=== PATIENT | male | born 1940 | race Hispanic/Latino ===

== ENCOUNTER 2018-09-26 13:00 | Inpatient (IN) | payer MEDICAID, SELFPAY ==
[~2018-09-26 13:00] MED LIST: ISOVUE-370 76%-LOCM 1 ML ONE
--- NOTE | 2018-09-26 13:33 | RAD ---
EXAM: Single view of the chest HISTORY: Chest pain; history of lung cancer COMPARISON: 02/19/2017 FINDINGS: Single view of the chest shows a normal sized cardiomediastinal silhouette. There are area s of airspace opacity projecting over the right lung which were not seen on the prior radiograph. No pleural effusion is seen. The bones are unremarkable. IMPRESSION: Right pulmonary infiltrates.
[2018-09-26 14:03] LABS: Hemoglobin 13.2 g/dL (14.0-18.0); Mean Corpuscular HGB CONC 34.4 g/dL (32.0-36.0); Mean Corpuscular Hemoglobin 33.4 pg (27.0-31.0); Mean Corpuscular Volume 97.1 fL (78.0-98.0); Mean Platelet Volume 6.9 fL (7.4-10.4); Platelet Count 145 thou/uL (130-400); RBC Distribution Width 12.8 % (11.5-14.5); Red Blood Cell (RBC) Count 3.95 mill/uL (4.70-6.10); White Blood Cell (WBC) Count 4.8 thou/uL (4.8-10.8)
[2018-09-26 14:26] LABS: ALT (SGPT) 16 U/L (8-55); AST (SGOT) 18 U/L (5-34); Albumin 3.5 g/dL (3.4-4.8); Alkaline Phosphatase 101 U/L (40-150); Anion Gap 12 mmol/L (10-20); BUN (Urea Nitrogen) 13 mg/dL (8.4-25.7); Bilirubin, Total 0.7 mg/dL (0.2-1.2); CK (CPK) 89 U/L (30-200); Calc. Creatinine Clearance 0 mL/min (70-130); Calcium 9.2 mg/dL (7.8-10.44); Carbon Dioxide 25 mmol/L (23-31); Chloride 102 mmol/L (98-107); Estimated GFR-MDRD 77; Globulin 2.6 g/dL (2.4-3.5); Glucose 176 mg/dL (83-110); Potassium 3.4 mmol/L (3.5-5.1); Protein, Total 6.1 g/dL (5.8-8.1); Sodium 136 mmol/L (136-145)
--- NOTE | 2018-09-26 14:28 | ULT ---
LEFT LOWER EXTREMITY VENOUS DUPLEX ULTRASOUND INCLUDING COLOR AND SPECTRAL DOPPLER IMAGING: HISTORY: Lower leg pain. FINDINGS: There is occlusive thrombus within the mid to distal superficial femoral vein with incomplete obstruc ting thrombus in the left popliteal vein and profunda femoral and proximal superficial femoral vein. The common femoral, greater saphenous, and posterior tibial veins appear patent. IMPRESSION: Obstructing and nonobstructing extraluminal thrombus involving the superficial femoral vein, poplitea l vein, and profunda femoral vein. Findings given with Dr. Galan at 2:18 p.m. CODE CR POS: RRE
[2018-09-26 14:29] LABS: Band 13 % (5-11); Eosinophils 1 % (0-10); Lymphocytes 16 % (21-51); MDiff Complete? YES; Monocytes 15 % (0-10); Neutrophil 53 % (42-75); Platelet Morphology Comment Appears Adequate; Polychromasia SLIGHT = 2-3 cells (100X) (0-2/hpf); Reactive Lymphocytes 2 % (0-10)
[2018-09-26] MEDS ORDERED: cefTRIAXone\\ROCEPHIN 2 GM VIAL ONE (14:49)
[2018-09-26] MEDS ORDERED: Azithromycin 500 MG VIAL ONE (14:49)
--- NOTE | 2018-09-26 15:08 | CT ---
EXAM: CTA of the chest HISTORY: Shortness of breath COMPARISON: None TECHNIQUE: Multiple contiguous axial images were obtained a CTA of the chest with contrast per pulmon amanda embolism protocol. 3-D oblique MIP reformats and direct coronal reformats were performed. FINDINGS: HEART: Normal in size without focal cardiac abnormality. PULMONARY ARTERIES: Normal in caliber without filling defects to suggest pulmonary emboli. MEDIASTINUM: No hilar or mediastinal lymphadenopathy. LUNGS: There is a 2.7 cm cavitary mass in the right upper lobe with surrounding smaller nodules that are subcentimeter in size. Atelectasis versus consolidation is seen in the right middle lobe. PLEURAL SPACE: No pleural effusion or pneumothorax. CHEST WALL SOFT TISSUES: Unremarkable VISUALIZED OSSEOUS STRUCTURES: Unremarkable VISUALIZED SUBDIAPHRAGMATIC STRUCTURES: A small hypodensity imaging from the left kidney likely repre sents a cyst. IMPRESSION: 1. No evidence of pulmonary thromboembolism 2. Right upper lobe cavitary mass. This could represent a malignant or infectious process. Correlate with white blood cell count. If this is felt to be an infectious etiology, then a follow-up CT after treatment is recommended to rule out malignancy.
--- NOTE | 2018-09-26 15:29 | PDOC.FPRHP ---
- History of Present Illness Chief Complaint: chest pain History of Present Illness: This 78-y-o Indian-speaking gentleman from [place] with a PMHx of lung cancer related to extensive smoking history presents with chest pain. Started Sunday, feels like pressure and is associated with shortness of breath, pain in his jaws bilaterally, and a little bit of a nonproductive cough. No nausea, vomiting , diarrhea, fever, chills, or diaphoresis. Pain is substernal, without radiation. Worse with exertion. Pain comes and goes. Pain improves when the patient lays down to rest. Per his daughters he has stage IV lung cancer, and he finished chemo in July 2018. His oncologist and radiation-oncologist are located in [place]. He has a follow up w/ the oncologist on October 22. He is here because he is visiting his daughter. Four months ago is when the tightness in his left leg started. This was not associated with any event, as it was noticed gradually. However, the patient drives here from [place] to visit family and is sitting for 12 hours at a time. His left leg is more swollen than his right leg; however, he states his right leg is starting to look big like his left. Denies pain in lower extremity. ED Course: Patient arrived in ED with stable vital signs. Tests performed include: EKG, CXR , Venous doppler of left leg, CTA of the chest. Lactic acid was 2.7 so he was given 2 L of NS. Due to findings on CXR, he was given a dose of rocephin and azithromycin for possible pneumonia. Heparin gtt was started with finding of superficial and deep DVT in L femoral/popliteal veins. - Allergies/Adverse Reactions Allergies Allergy/AdvReac Type Severity Reaction Status Date / Time No Known Allergies Allergy Unverified 09/26/18 15:24 - Home Medications Medication Instructions Recorded Confirmed Type No Known 09/26/18 09/26/18 History Comments: None. - History PMHx: Stage IV lung cancer - Denies any other medical problems such as HTN, DM, Cardiac history. PSHx: no surgeries FHx: Mother is , had Diabetes and HTN. Social: denies alcohol use, history of smoking, 4 packs a day for 60 years. Denies drug use. He quit smoking October 2017. - Review of Systems General: reports: weight/appetite/sleep changes (6 kg down since the cancer diagnosis, decreased appetite as well since the diagnosis). denies: fever/ chills, night sweats Eyes: denies: vision changes Respiratory: reports: cough (intermittent, nonproductive), shortness of breath, exercise intolerance (dyspnea on exertion, improves w/ rest) Cardiovascular: reports: chest pain Gastrointestinal: denies: nausea, vomiting, diarrhea, constipation, abdominal pain Skin: denies: rashes, jaundice Musculoskeletal: reports: pain (R lower back), tenderness (R lower back) - Vital signs BP: [] HR: [] RR: [] Tmax: [] Pox: []% on [] Wt: [] - Physical Exam Constitutional: NAD, awake, alert and oriented, well developed HEENT: normocephalic and atraumatic, EOMI, no scleral icterus, grossly normal hearing, MMM Heart: RRR, normal S1/S2 Lungs: other (no dullness to percussion b/l, mild wheezing in b/l lower lung collins, patient has some upper airway stridor) Abdomen: soft, non-tender, bowel sounds present, other (mildly distended) Musculoskeletal: normal structure, normal tone Neurological: no focal deficit Skin: no rash/lesions, capillary refill <2 seconds Heme/Lymphatic: no LAD, other (mildly swollen L lower extremity as compared to right, nonerythematous, nontender LE to palpation. DP pulses 2+ bilaterally. No edema) Psychiatric: normal mood and affect, intact recent and remote memory FMR H&P: Results - Labs Result Diagrams: 09/27/18 04:58 09/27/18 04:58 Lab results: WBC 4.8 thou/uL (4.8-10.8) 09/26/18 13:50 Hgb 13.2 g/dL (14.0-18.0) L 09/26/18 13:50 Hct 38.3 % (42.0-52.0) L 09/26/18 13:50 MCV 97.1 fL (78.0-98.0) 09/26/18 13:50 Plt Count 145 thou/uL (130-400) 09/26/18 13:50 Band Neuts % (Manual) 13 % (5-11) H 09/26/18 13:50 Sodium 136 mmol/L (136-145) 09/26/18 13:50 Potassium 3.4 mmol/L (3.5-5.1) L 09/26/18 13:50 Chloride 102 mmol/L (98-107) 09/26/18 13:50 Carbon Dioxide 25 mmol/L (23-31) 09/26/18 13:50 BUN 13 mg/dL (8.4-25.7) 09/26/18 13:50 Creatinine 0.94 mg/dL (0.7-1.3) 09/26/18 13:50 Glucose 176 mg/dL (83-110) H 09/26/18 13:50 Lactic Acid 2.7 mmol/L (0.5-2.2) H 09/26/18 13:50 Calcium 9.2 mg/dL (7.8-10.44) 09/26/18 13:50 Total Bilirubin 0.7 mg/dL (0.2-1.2) 09/26/18 13:50 AST 18 U/L (5-34) 09/26/18 13:50 ALT 16 U/L (8-55) 09/26/18 13:50 Alkaline Phosphatase 101 U/L (40-150) 09/26/18 13:50 Creatine Kinase 89 U/L (30-200) 09/26/18 13:50 Serum Total Protein 6.1 g/dL (5.8-8.1) 09/26/18 13:50 Albumin 3.5 g/dL (3.4-4.8) 09/26/18 13:50 Troponin: <0.010 - EKG Interpretation EKG: Left axis deviation. QTc 457. NSR. - Radiology Interpretation CT scan - chest Status: image reviewed by me, report reviewed by me Additional comment: Negative for PE. 2.3 cm cavitary lesion in RUL representing infectious vs malignant process. Chest x-ray Status: image reviewed by me, report reviewed by me Additional comment: very small RUL opacity seen US - venous Status: image reviewed by me, report reviewed by me Additional comment: Left leg: Obstructive and nonobstructive extraluminal thrombus in superficial femoral, profunda femoral, and popliteal FMR H&P: A/P - Problem List (1) Left femoral vein DVT Current Visit: Yes Status: Acute Code(s): I82.412 - ACUTE EMBOLISM AND THROMBOSIS OF LEFT FEMORAL VEIN (2) Thromboembolism involving left popliteal vein Current Visit: Yes Status: Acute Code(s): I82.432 - ACUTE EMBOLISM AND THROMBOSIS OF LEFT POPLITEAL VEIN (3) Chest pain, rule out acute myocardial infarction Current Visit: Yes Status: Acute Code(s): R07.9 - CHEST PAIN, UNSPECIFIED (4) Tuberculosis contact Current Visit: Yes Status: Acute Code(s): Z20.1 - CONTACT WITH AND ( SUSPECTED) EXPOSURE TO TUBERCULOSIS (5) History of lung cancer in adulthood Current Visit: Yes Status: Chronic Code(s): Z85.118 - PERSONAL HISTORY OF MALIGNANT NEOPLASM OF BRONCHUS AND LUNG (6) History of tobacco abuse Current Visit: Yes Status: Acute Code(s): Z87.891 - PERSONAL HISTORY OF NICOTINE DEPENDENCE - Plan 78-y.o. male former smoker from [place]: 1. Provoked left femoral vein DVT, left popliteal vein thromboembolism * Patient is stable and still has palpable pulses and capillary refill <2 seconds on his left leg. * Due to his risk factors of lung cancer/hypercoagulability and sitting to drive long hours, this DVT is provoked. * DVT protocol w/ heparin gtt and PTT checks q6h and H&H q48h * Monitor for signs & symptoms of PE 2. Chest pain, r/o OK * Initial troponin negative. Trend troponins * EKG: left axis deviation, NSR. No ST-T wave changes. No previous EKG to compare. * CXR: small opacity RUL. No cardiomegaly. * Will place patient on telemetry overnight. 3. Tuberculosis contact * Patient is from [place] and has a cavitary lesion on CTA of chest, which could be his known malignancy or infectious. * Tuberculin PPD to be placed tonight * Negative pressure room. TB precautions in place. 4. History of lung cancer * Recent chemo treatment in July 2018. This cancer is a risk for clotting. * Will monitor patient's O2 sats. * DuoNebs q6h prn for SOB or wheezing. 5. History of tobacco abuse * Smoking history of 60 years at 3-4 ppd. Patient quit October 2017. Lorri Marks MD PGY-1 Disposition/LOS: Admit to telemetry, inpatient. FMR H&P: Upper Level - Plan Date/Time: 09/26/18 1521 78 yo male with pmhx of lung cancer (stage 4) presents with chest pain and left lower extremity swelling and tightness. Vitals: HR83, 99% RA, RR 20, BP: 108/76 PE: Left lower extremity with swelling of thigh, no erythema, mildly tenderness, no edema Lungs CTAB RRR Labs: 4.8>13.2/38.3<145 13% bands 2.7 Lactic acid 3.4 K US: thrombus found in the superficial, popliteal, and profunda vein of the left lower extremity CTA chest: negative for PE; right upper lobe cavitary lesion A/P: #DVT-recent travel from [place], and thus provoked, plus in the setting of lung cancer. Started on heparin protocol. Pt does have good kidney function and could consider lovenox tomorrow. I dont think the pt has insurance and will likely need warfarin upon discharge. #RUL cavitary lesion-recent travel to [place], will order sputum AFB culture and PPD to rule out TB, patient placed in isolation for now. Does not meet SIRS criteria. Consider ID consult. #Atypical chest pain-EKG showed left axis deviation, nonspecific t wave changes , trending troponin #Recent hx metastatic cancer-finished chemo in July IVianca MD, PGY-3 have evaluated this patient and agree with findings/ plan as outlined by recruiting internship resident. Pertinent changes/additions are listed here. Addendum - Attending - Attending Attestation Date/Time: 09/27/18 0820 I personally evaluated the patient and discussed the management with Dr. Carias at [facility] of admission yesterday. I agree with the History, Examination, Assessment and Plan documented above with any addition or exceptions noted below.
[2018-09-26 15:30] LABS: PTT 27.3 SEC (22.9-36.1); Prothrombin Time 13.1 SEC (12.0-14.7)
[2018-09-26] MEDS ORDERED: Heparin 25,000 units/D5W 500 ML IV SCH (15:30)
[2018-09-26] MEDS ORDERED: Heparin 10,000 UNITS/ 10 ML VIAL SLOW IVP SCH ×2 (15:30→18:04)
[2018-09-26 17:38] LABS: Troponin I Less than 0.010 ng/mL (< 0.028)
[2018-09-26 18:02] LABS: Lactic Acid 2.1 mmol/L (0.5-2.2)
[2018-09-26] MEDS ORDERED: Ondansetron ODT 4 MG TAB PO PRN (18:04)
[2018-09-26] MEDS ORDERED: Acetaminophen 325 MG TAB PO PRN (18:04)
[2018-09-26] MEDS ORDERED: Heparin 25,000 units/D5W 500 ML IVPB SCH (18:04)
[2018-09-26] MEDS ORDERED: Guaifenesin DM 100-10/5 ML UDCUP PO PRN (18:04)
[2018-09-26] MEDS ORDERED: Senokot S 8.6-50 MG TAB PO PRN (18:04)
[2018-09-26] MEDS ORDERED: Calcium Carbonate 500 MG ChewTAB PO PRN (18:04)
[2018-09-26 19:03] LABS: Hemoglobin 12.3 g/dL (14.0-18.0); Platelet Count 144 thou/uL (130-400)
[2018-09-26 19:21] LABS: PTT 159.3 SEC (22.9-36.1)
[2018-09-26] MEDS: Tuberculin PPD 0.1 ML VIAL I-DERMAL SCH (19:48)
[2018-09-26 20:08] LABS: Lactic Acid 2.4 mmol/L (0.5-2.2)
[2018-09-26 20:16] LABS: Troponin I Less than 0.010 ng/mL (< 0.028)
[2018-09-27 05:11] LABS: #Eosinphils 0.1 thou/uL (0.0-0.7); #Lymphocytes 0.8 thou/uL (1.20-3.40); #Monocytes 0.5 thou/uL (0.11-0.59); #Neutrophils 1.7 thou/uL (1.40-6.50); %Basophils 0.8 % (0.0-1.0); %Eosinophils 2.9 % (0.0-10.0); %Lymphocytes 26.7 % (21.0-51.0); %Monocytes 14.7 % (0.0-10.0); %Neutrophils 54.9 % (42.0-75.0); Hemoglobin 12.1 g/dL (14.0-18.0); Mean Corpuscular HGB CONC 34.4 g/dL (32.0-36.0); Mean Corpuscular Hemoglobin 33.7 pg (27.0-31.0); Mean Corpuscular Volume 97.9 fL (78.0-98.0); Mean Platelet Volume 6.8 fL (7.4-10.4); Platelet Count 137 thou/uL (130-400); RBC Distribution Width 12.8 % (11.5-14.5); Red Blood Cell (RBC) Count 3.61 mill/uL (4.70-6.10); White Blood Cell (WBC) Count 3.1 thou/uL (4.8-10.8)
[2018-09-27 05:28] LABS: ALT (SGPT) 12 U/L (8-55); AST (SGOT) 14 U/L (5-34); Alkaline Phosphatase 83 U/L (40-150); Anion Gap 11 mmol/L (10-20); BUN (Urea Nitrogen) 11 mg/dL (8.4-25.7); Bilirubin, Total 0.5 mg/dL (0.2-1.2); Calc. Creatinine Clearance 74 mL/min (70-130); Calcium 8.6 mg/dL (7.8-10.44); Carbon Dioxide 25 mmol/L (23-31); Chloride 108 mmol/L (98-107); Estimated GFR-MDRD Greater than 90; Globulin 2.3 g/dL (2.4-3.5); Glucose 117 mg/dL (83-110); Potassium 3.6 mmol/L (3.5-5.1); Protein, Total 5.3 g/dL (5.8-8.1); Sodium 140 mmol/L (136-145)
--- NOTE | 2018-09-27 05:45 | PDOC.FM ---
- Subjective Subjective: Patient is doing well. VSS. In sinus rhythm 60-70 bpm all night. Denies chest pain, trouble breathing. Denies history of having tuberculosis. No left leg pain today. - Objective MAR Reviewed: Yes Vital Signs & Weight: Vital Signs (12 hours) Temp Pulse Resp BP Pulse Ox 09/27/18 03:50 98.5 F 66 18 110/59 L 96 09/26/18 19:35 97.7 F 68 22 H 122/67 97 09/26/18 17:59 99.0 F 83 27 H 116/65 95 Weight Weight 71.123 kg Result Diagrams: 09/27/18 04:58 09/27/18 04:58 EKG Reviewed by me: Yes Radiology Reviewed by me: Yes Phys Exam - Physical Examination Constitutional: NAD HEENT: moist MMs Respiratory: clear to auscultation bilateral Cardiovascular: RRR, no significant murmur Gastrointestinal: soft, non-tender Musculoskeletal: no edema (no change from previous exam) Psychiatric: normal affect, A&O x 3 Dx/Plan (1) Left femoral vein DVT Code(s): I82.412 - ACUTE EMBOLISM AND THROMBOSIS OF LEFT FEMORAL VEIN Status: Acute (2) Thromboembolism involving left popliteal vein Code(s): I82.432 - ACUTE EMBOLISM AND THROMBOSIS OF LEFT POPLITEAL VEIN Status : Acute (3) Chest pain, rule out acute myocardial infarction Code(s): R07.9 - CHEST PAIN, UNSPECIFIED Status: Acute (4) Tuberculosis contact Code(s): Z20.1 - CONTACT WITH AND (SUSPECTED) EXPOSURE TO TUBERCULOSIS Status : Acute (5) History of lung cancer in adulthood Code(s): Z85.118 - PERSONAL HISTORY OF MALIGNANT NEOPLASM OF BRONCHUS AND LUNG Status: Chronic (6) History of tobacco abuse Code(s): Z87.891 - PERSONAL HISTORY OF NICOTINE DEPENDENCE Status: Acute - Plan Plan: 78-y.o. male former smoker from [place]: 1. Provoked left femoral vein DVT, left popliteal vein thromboembolism * Due to his risk factors of lung cancer/hypercoagulability and sitting to drive long hours, this DVT is provoked. * DVT protocol * Consider lovenox 1mg/kg q12h today. We may discharge on warfarin considering patient is from [place]/pending insurance. Patient has normal creatinine and no medical history of impaired renal function. * HASBLED = 1 * Monitor for signs & symptoms of PE 2. Chest pain, r/o AR * Troponin negative x3. * EKG: left axis deviation, NSR. No ST-T wave changes. No previous EKG to compare. * CXR: small opacity RUL. No cardiomegaly. * July d/c telemetry 3. Tuberculosis contact * Patient is from [place] and has a cavitary lesion on CTA of chest, which could be his known malignancy or infectious. * Tuberculin PPD pending * Acid fast sputum cultures pending * Negative pressure room. TB precautions in place. 4. History of lung cancer * Recent chemo treatment in July 2018. This cancer is a risk for clotting. * Will monitor patient's O2 sats. * DuoNebs q6h prn for SOB or wheezing. 5. History of tobacco abuse * Smoking history of 60 years at 3-4 ppd. Patient quit October 2017. Lorri Marks MD PGY-1 Addendum - Attending - Attending Attestation Date/Time: 09/27/18 0306 I personally evaluated the patient and discussed the management with Dr. Marks. I agree with the History, Examination, Assessment and Plan documented above with any addition or exceptions noted below. Family tells me patient had a clear XRay/CT scan previously - new lesion. No symptoms. Was scheduled to f/u with onc in October vs November. Will d/w pulm. Dispo pending.
[2018-09-27] MEDS ORDERED: Prevnar 13-Val Conj/PF 0.5 ML SYRINGE IM ONE (09:00)
--- NOTE | 2018-09-27 09:39 | ULT ---
ULTRASOUND WITH DOPPLER DUPLEX VENOUS LOWER EXTREMITY RIGHT: HISTORY: An 78-year-old male with right lower extremity pain. TECHNIQUE: Color flow Doppler, spectral waveform analysis of pulsed Doppler, and martin-scale imaging with giovany berhane and augmentation, were used to evaluate the right common femoral, femoral, popliteal, posterior tibial, and superficial femoral, veins; and the proximal portions of the profunda femoral and greater saphenous, veins. FINDINGS: There is normal compressibility, demonstration of blood flow by color Doppler and pulsed Doppler, and response to augmentation, in all interrogated veins. IMPRESSION: Negative. No deep vein thrombosis in the right lower extremity. jn [] POS: TPC
[2018-09-27 11:59] VITALS: BMI 27.0
[2018-09-27] MEDS ORDERED: Enoxaparin Sodium 80 MG/0.8 ML SYRINGE SC SCH (12:30)
[2018-09-27 12:47] LABS: HIV (1/2) Antibody/Antigen Non-Reactive (NonReactive); HIV 1/2 INDEX 0.05 S/CO (<1.00)
--- NOTE | 2018-09-27 14:24 | CON ---
DATE OF CONSULTATION: HISTORY OF PRESENT ILLNESS: Leonardo Smith is an 78-year-old gentleman from [place] , who is visiting family, where he presented with ongoing chest pain vague, midsternal without any associated fevers, chills, or sweats. He did not cough up any blood. He has a diagnosis of metastatic stage IV cancer , appears to be non-small cell, though they do not have a definitive answer to that. They are trying to get records from [place]. It was initially in the left lung. This morning, he said he is feeling better. Denies any fever, chills, or sputum production. The patient speaks little Spanish. History was obtained after talking to the daughter and [id number], who both speak Spanish. PAST MEDICAL HISTORY: No diabetes. No hypertension. Has stage IV lung cancer. PAST SURGICAL HISTORY: Lymph node biopsy was taken to make a diagnosis of his right neck. He smoked 4 packs a day for 60 years, quit smoking when a diagnosis made a year ago. SOCIAL AND FAMILY HISTORY: Unremarkable. REVIEW OF SYSTEMS: Negative. PHYSICAL EXAMINATION: GENERAL: He appears to be in no distress. VITAL SIGNS: His sats are 97% on room air, temperature 98, pulse 66, respirations 19, and blood pressure 115/62. CHEST: Decreased breath sounds. No wheezing. CARDIAC: Normal S1 and S2. No gallops. ABDOMEN: No masses. LABORATORY DATA: White count 3000, hemoglobin and hematocrit of 12 and 35, platelet count is normal. His lytes are normal. IMPRESSION: Bilateral lung nodules, right upper lung appears to be cavitary. Chest x-ray basically showed right lung infiltrate. Metastatic lung cancer, probably non-small cell. No evidence of TB to suggest either on the x-ray or the CT. Pulmonary caputo, the patient is in isolation. He needs sputum for verification to confirm that he does not have TB. From my standpoint, once this is obtained, he is ready to go home. He clearly has a nodule in the left lung, which was not reported on the CT report and a peripheral right upper lung cavitary lesion and bilateral lung nodules. If they need any additional workup for metastatic disease,needs a PET scan, my best suggestion is trying to get some information from [place]. Consultation note, 70 minutes, 50% direct patient care. Job ID: [id number] [facility]
[2018-09-27] MEDS: Enoxaparin Sodium 80 MG/0.8 ML SYRINGE SC SCH (20:35)
--- NOTE | 2018-09-28 05:54 | PDOC.FM ---
- Subjective Subjective: VSS. Afebrile. Patient is doing well this morning. No complaints. No pain. Daughter at bedside. Daughter reports patient pays for his healthcare in [place] out of pocket. Discussed anticoagulation options this AM and follow up. Also reports patient plans to return to [place] within the next 10-14 days as he has oncology follow up. - Objective MAR Reviewed: Yes Vital Signs & Weight: Vital Signs (12 hours) Temp Pulse Resp BP Pulse Ox 09/28/18 05:41 96 09/28/18 04:00 98.6 F 72 18 119/72 96 09/27/18 19:35 95 09/27/18 19:33 97.8 F 75 18 113/65 95 Weight Admit Weight 71.123 kg Weight 69.218 kg I&O: 09/26/18 09/27/18 09/28/18 06:59 06:59 06:59 Intake Total 240 1080 Output Total 500 Balance -260 1080 Result Diagrams: 09/28/18 07:29 09/27/18 04:58 Phys Exam - Physical Examination Constitutional: NAD HEENT: moist MMs Respiratory: no wheezing, clear to auscultation bilateral Cardiovascular: RRR, no significant murmur Gastrointestinal: soft, non-tender, no distention, positive bowel sounds Musculoskeletal: no edema (left leg: no apparent swelling, erythema, or tenderness to palpation), pulses present Psychiatric: normal affect, A&O x 3 Dx/Plan (1) Left femoral vein DVT Code(s): I82.412 - ACUTE EMBOLISM AND THROMBOSIS OF LEFT FEMORAL VEIN Status: Acute (2) Thromboembolism involving left popliteal vein Code(s): I82.432 - ACUTE EMBOLISM AND THROMBOSIS OF LEFT POPLITEAL VEIN Status : Acute (3) Chest pain, rule out acute myocardial infarction Code(s): R07.9 - CHEST PAIN, UNSPECIFIED Status: Acute (4) Tuberculosis contact Code(s): Z20.1 - CONTACT WITH AND (SUSPECTED) EXPOSURE TO TUBERCULOSIS Status : Acute (5) History of lung cancer in adulthood Code(s): Z85.118 - PERSONAL HISTORY OF MALIGNANT NEOPLASM OF BRONCHUS AND LUNG Status: Chronic (6) History of tobacco abuse Code(s): Z87.891 - PERSONAL HISTORY OF NICOTINE DEPENDENCE Status: Acute - Plan Plan: 78-y.o. male former smoker from [place]: 1. Provoked left femoral vein DVT, left popliteal vein thromboembolism - Begin Warfarin 5 mg this AM. Will check INR daily starting tomorrow. - Continue Lovenox 1mg/kg q12h until warfarin becomes therapeutic. Normal creatinine and no medical history of impaired renal function. - Case mgmt needed to assess aid w/ prescriptions, would like to d/c on warfarin, need to coordinate follow up INR lab checks. - HASBLED = 1 - Monitor for signs & symptoms of PE 2. Chest pain, r/o VT - Troponin negative x3. - EKG: left axis deviation, NSR. No ST-T wave changes. No previous EKG to compare. - CXR: small opacity RUL. No cardiomegaly. 3. Tuberculosis contact - Patient is from [place] and has a cavitary lesion on CTA of chest, which could be his known malignancy or infectious. - Tuberculin PPD positive; however, patient has no symptoms/signs of TB. - Acid fast sputum smear: no organisms seen. - Concentrated smear and culture pending. - Continue TB precautions until final smear/culture. - Consulted pulmonology. Appreciate recs. Favors malignancy > infectious process in lung. 4. History of lung cancer - Recent chemo treatment in July 2018. - Will monitor patient's O2 sats. - DuoNebs q6h prn for SOB or wheezing. - Patient & [id number] would like oncology opinion on returning lung lesions. - Oncology consult this AM. 5. History of tobacco abuse - Smoking history of 60 years at 3-4 ppd. Patient quit October 2017. Lorri Marks MD PGY-1 Addendum - Attending - Attending Attestation Date/Time: 09/28/18 5764 I personally evaluated the patient and discussed the management with Dr. Carias. I agree with the History, Examination, Assessment and Plan documented above with any addition or exceptions noted below. The patient was resting comfortably with family at bedside. He has a LLE DVT. He is on lovenox. Will begin coumadin bridge. Check INR's. Pt's sputum afb negative. Family requests onc consultation. Will need to become therapeutic on coumadin. Pt unable to afford outpt lovenox.
[2018-09-28] MEDS: Enoxaparin Sodium 80 MG/0.8 ML SYRINGE SC SCH ×2 (08:04→21:25)
[2018-09-28 08:25] LABS: Hemoglobin 12.4 g/dL (14.0-18.0); Mean Corpuscular HGB CONC 34.4 g/dL (32.0-36.0); Mean Corpuscular Hemoglobin 33.8 pg (27.0-31.0); Mean Corpuscular Volume 98.1 fL (78.0-98.0); RBC Distribution Width 12.7 % (11.5-14.5); Red Blood Cell (RBC) Count 3.66 mill/uL (4.70-6.10)
[2018-09-28] MEDS ORDERED: Warfarin Sodium 5 MG TAB PO SCH (08:40)
[2018-09-28 11:00] LABS: Prothrombin Time 13.1 SEC (12.0-14.7)
[2018-09-28 11:57] LABS: Eosinophils 2 % (0-10); Lymphocytes 28 % (21-51); MDiff Complete? YES; Mean Platelet Volume 7.2 fL (7.4-10.4); Monocytes 12 % (0-10); Neutrophil 52 % (42-75); Platelet Count 163 thou/uL (130-400); Platelet Morphology Comment Appears Adequate; Reactive Lymphocytes 6 % (0-10); White Blood Cell (WBC) Count 3.4 thou/uL (4.8-10.8)
--- NOTE | 2018-09-28 12:17 | PRG ---
DATE OF SERVICE: 09/28/2018 SUBJECTIVE: His PPD is positive. His sputum initially is negative. OBJECTIVE: VITAL SIGNS: Saturations are 98% on room air, temperature _98.4_, blood pressure 120/70. He denies any pain or discomfort. CHEST: No wheezing, crackles. CARDIAC: Normal S1, S2. No gallops. 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 Positive PPD. Initially his acid-fast was negative. I doubt this is TB His another sputum acid-fast is negative. He can be discharged home. Job ID: [id number] [facility]
[2018-09-28 18:34] LABS: Hemoglobin 13.2 g/dL (14.0-18.0); Platelet Count 166 thou/uL (130-400)
[2018-09-28] MEDS: Tuberculin PPD 0.1 ML VIAL I-DERMAL SCH (21:26)
[2018-09-28] MEDS: READ PPD TEST SITE PO SCH (21:28)
[2018-09-29 05:13] LABS: Prothrombin Time 13.1 SEC (12.0-14.7)
--- NOTE | 2018-09-29 05:52 | PDOC.FM ---
- Subjective Subjective: VSS. Afebrile. Patient, via [id number], who speaks Hebrew reports no complaints and no pain. Am Patient appears very stoic. Family brought records of CT scans prior to chemo from [place]. They also gave cell phone number of oncologist Dr. Eldon Toussaint, who speaks only Danish and who we could possibly contact through [employer]. Per [id number], the patient's leg w/ DVT looks markedly improved! They agree w/ the plan to continue warfarin on d/c. - Objective MAR Reviewed: Yes Vital Signs & Weight: Vital Signs (12 hours) Temp Pulse Resp BP Pulse Ox 09/29/18 04:00 97.7 F 84 18 102/63 94 L 09/28/18 20:20 98 F 80 20 116/64 98 Weight Admit Weight 71.123 kg Weight 68.629 kg I&O: 09/27/18 09/28/18 09/29/18 06:59 06:59 06:59 Intake Total 240 1320 960 Output Total 500 500 Balance -260 820 960 Result Diagrams: 09/28/18 18:16 09/27/18 04:58 Phys Exam - Physical Examination Constitutional: NAD Respiratory: no wheezing, clear to auscultation bilateral Cardiovascular: RRR, no significant murmur Gastrointestinal: soft Musculoskeletal: no edema, pulses present Dx/Plan (1) Left femoral vein DVT Code(s): I82.412 - ACUTE EMBOLISM AND THROMBOSIS OF LEFT FEMORAL VEIN Status: Acute (2) Thromboembolism involving left popliteal vein Code(s): I82.432 - ACUTE EMBOLISM AND THROMBOSIS OF LEFT POPLITEAL VEIN Status : Acute (3) Chest pain, rule out acute myocardial infarction Code(s): R07.9 - CHEST PAIN, UNSPECIFIED Status: Acute (4) Tuberculosis contact Code(s): Z20.1 - CONTACT WITH AND (SUSPECTED) EXPOSURE TO TUBERCULOSIS Status : Acute (5) History of lung cancer in adulthood Code(s): Z85.118 - PERSONAL HISTORY OF MALIGNANT NEOPLASM OF BRONCHUS AND LUNG Status: Chronic (6) History of tobacco abuse Code(s): Z87.891 - PERSONAL HISTORY OF NICOTINE DEPENDENCE Status: Acute - Plan Plan: 78-y.o. male former smoker from [place]: 1. Provoked left femoral vein DVT, left popliteal vein thromboembolism - Continue Warfarin 5 mg this AM - Daily INR - Continue Lovenox 1mg/kg q12h until warfarin becomes therapeutic. Normal Creatinine. - Case mgmt needed to assess aid w/ prescriptions, would like to d/c on warfarin, need to coordinate follow up INR lab checks. - HASBLED = 1 - Monitor for signs & symptoms of PE 2. Chest pain, r/o [place] - Troponin negative x3. - EKG: left axis deviation, NSR. No ST-T wave changes. No previous EKG to compare. - CXR: small opacity RUL. No cardiomegaly. 3. Tuberculosis contact - Patient is from [place] and has a cavitary lesion on CTA of chest, which could be his known malignancy or infectious. - Tuberculin PPD positive; however, patient has no symptoms/signs of TB. - Acid fast sputum smear: no organisms seen. x2 - Concentrated smears and cultures pending. - Continue TB precautions until final smear/culture. - Consulted pulmonology. Appreciate recs. Favors malignancy > infectious process in lung. - With regards to TB, patient could be discharged. However, his DVT treatment and warfarin titration must continue here for now. Patient is uninsured and outpatient LVX is quite expensive. 4. History of lung cancer - Recent chemo treatment in July 2018. - Will monitor patient's O2 sats. - DuoNebs q6h prn for SOB or wheezing. - Called Dr. Serna of oncology. Need oncology records from [place] before he can proceed with any mgmt. Family brought his CT reports today. They will need to be translated. Family could potentially follow up w/ Dr. Serna outpatient; however, he is uninsured and might be going back to [place] soon to see his regular oncologist. 5. History of tobacco abuse - Smoking history of 60 years at 3-4 ppd. Patient quit October 2017. Lorri Marks MD PGY-1 Addendum - Attending - Attending Attestation Date/Time: 09/29/18 5712 I personally evaluated the patient and discussed the management with Dr. Marks. I agree with the History, Examination, Assessment and Plan documented above with any addition or exceptions noted below. The patient is doing well this morning. Currently bridging to coumadin. Check INR.
[2018-09-29] MEDS: Enoxaparin Sodium 80 MG/0.8 ML SYRINGE SC SCH ×2 (09:22→20:43)
[2018-09-29] MEDS: Warfarin Sodium 5 MG TAB PO SCH (09:22)
--- NOTE | 2018-09-29 10:43 | PRG ---
DATE OF SERVICE: 09/29/2018 OBJECTIVE: VITAL SIGNS: Sats 95% on room air, temperature 98, pulse 77, blood pressure . CHEST: Decreased breath sounds. No wheezing. CARDIAC: Normal S1, S2. No gallops. IMPRESSION: Bilateral pulmonary nodules, cavitary metastatic squamous cell carcinoma, positive PPD. PLAN: Await for another sputum result. If it is negative, he can be discharged home. Follow up with his oncologist. Job ID: [id number]
[2018-09-29] MEDS: Tuberculin PPD 0.1 ML VIAL I-DERMAL SCH (21:00)
[2018-09-30] MEDS: READ PPD TEST SITE PO SCH (01:23)
[2018-09-30 02:52] LABS: Hemoglobin 12.8 g/dL (14.0-18.0); Platelet Count 166 thou/uL (130-400)
--- NOTE | 2018-09-30 06:12 | PDOC.FM ---
- Subjective Subjective: Pt doing well this morning without concerns or complaints. Family at bedside. Slept well without acute events overnight. Pt is eager to be discharged. Pt's [place] and want to follow up with us as PCP and find an Oncologist here if possible. - Objective MAR Reviewed: Yes Vital Signs & Weight: Vital Signs (12 hours) Temp Pulse Resp BP Pulse Ox 09/30/18 04:20 98.6 F 68 18 103/66 94 L 09/30/18 00:00 97.6 F 72 16 99/68 94 L 09/29/18 20:00 98.1 F 78 16 104/63 94 L Weight Admit Weight 71.123 kg Weight 66.814 kg I&O: 09/28/18 09/29/18 09/30/18 06:59 06:59 06:59 Intake Total 1320 1560 1320 Output Total 500 350 Balance 820 1560 970 Result Diagrams: 09/30/18 02:45 09/27/18 04:58 Phys Exam - Physical Examination Constitutional: NAD Respiratory: no wheezing, no rales, no rhonchi, clear to auscultation bilateral Cardiovascular: RRR, no significant murmur, no rub Gastrointestinal: soft, non-tender, no distention, positive bowel sounds Dx/Plan (1) Left femoral vein DVT Code(s): I82.412 - ACUTE EMBOLISM AND THROMBOSIS OF LEFT FEMORAL VEIN Status: Acute (2) Thromboembolism involving left popliteal vein Code(s): I82.432 - ACUTE EMBOLISM AND THROMBOSIS OF LEFT POPLITEAL VEIN Status : Acute (3) History of lung cancer in adulthood Code(s): Z85.118 - PERSONAL HISTORY OF MALIGNANT NEOPLASM OF BRONCHUS AND LUNG Status: Chronic (4) History of tobacco abuse Code(s): Z87.891 - PERSONAL HISTORY OF NICOTINE DEPENDENCE Status: Acute - Plan Plan: 78-y.o. male former smoker from [place] with Stage IV lung cancer treated in [place] who presents with provoked left DVT 1. Provoked left femoral vein DVT, left popliteal vein thromboembolism - Continue Warfarin 5 mg, INR 1.0, will continue to monitor with INR this AM 1.2. Will increase warfarin to 7.5mg daily and recheck INR in AM. - Continue Lovenox 1mg/kg q12h until warfarin becomes therapeutic. Normal Creatinine. - Case mgmt consulted for assistance with med funding and follow up, appreciate recs - HASBLED = 1 - Monitor for signs & symptoms of PE 2. Chest pain, r/o [place] - pain resolved - Troponin negative x3. EKG with left axis deviation and no ST/T wave changes. No previous EKG. - CXR: small opacity RUL. No cardiomegaly. 3. Tuberculosis contact - From [place] and has a cavitary lesion on CTA of chest, which could be his known malignancy or infectious. - Tuberculin PPD positive; however, patient has no symptoms/signs of TB. - Acid fast sputum smear: no organisms seen. x2 - Concentrated smears and cultures pending. Continue TB precautions until final smear/culture. - Consulted pulmonology. Appreciate recs. Favors malignancy > infectious process in lung. 4. History of lung cancer - Recent chemo treatment in July 2018. - Dr. Serna of oncology consulted. Onc records from [place] obtained from family but need translation. Pt is inunsuraned but wishes to follow up with Onc here in [facility] if possible. 5. History of tobacco abuse - Smoking history of 60 years at 3-4 ppd. Patient quit October 2017. Diet: heart healthy VTE: Therapeutic Lovenox --> warfarin Code: Full Dispo: Pending therapeutic INR. Patient is uninsured and thus will need assistance with funding as outpatient. Will also need arrangements for Onc and PCP followup if desired.
[2018-09-30 09:04] LABS: INR-International Normal Ratio 1.2; Prothrombin Time 14.9 SEC (12.0-14.7)
[2018-09-30] MEDS: Warfarin Sodium 5 MG TAB PO SCH (09:11)
[2018-09-30] MEDS: Enoxaparin Sodium 80 MG/0.8 ML SYRINGE SC SCH ×2 (09:11→20:06)
--- NOTE | 2018-09-30 09:46 | PRG ---
DATE OF SERVICE: 09/30/2018 SUBJECTIVE: Leonardo Smith remains asymptomatic. OBJECTIVE: VITAL SIGNS: Temperature 98, pulse 71, sats 94% on room air, respirations 17, blood pressure 99/55. CHEST: No wheezing or crackles. CARDIAC: Normal S1 and S2. ABDOMEN: No masses. IMPRESSION: 1. Abnormal chest x-ray, bilateral pulmonary lung nodules, metastatic squamous cell carcinoma. 2. Positive PPD. Acid-Fast smear, negative on smears. PLAN: He can be discharged to home. Follow up with his primary care physician. Job ID: [id number]
[2018-09-30] MEDS ORDERED: Warfarin Sodium 2.5 MG TAB PO SCH (11:50)
--- NOTE | 2018-09-30 12:08 | PRG ---
DATE OF SERVICE: 09/30/2018 Mr. Smith is resting quietly in bed, in no distress. He was seen in consultation by the Pulmonary Service, who feels he is ready for discharge. We are still in the process of anticoagulating him for his DVT. His AFB smears are so far negative despite the positive skin test. We will discharge him once the pro-time is above 2 to 2.5. Job ID: [id number]
[2018-09-30] MEDS ORDERED: Warfarin Sodium 7.5 MG TAB PO SCH (17:00)
[2018-09-30 18:50] LABS: Hemoglobin 12.9 g/dL (14.0-18.0); Platelet Count 177 thou/uL (130-400)
--- NOTE | 2018-10-01 05:14 | PDOC.FM ---
- Subjective Subjective: Pt is doing well this morning without concerns or complaints. No acute events overnight. No fevers/Chills, CP, SOB, n/v/d/c. Family states they are going to continue to obtain outside records for f/u with onc as outpatient. - Objective MAR Reviewed: Yes Vital Signs & Weight: Vital Signs (12 hours) Temp Pulse Resp BP Pulse Ox 10/01/18 03:40 97.4 F L 78 18 103/69 94 L 09/30/18 20:00 97.7 F 70 16 119/72 97 Weight Admit Weight 71.123 kg Weight 67.676 kg I&O: 09/29/18 09/30/18 10/01/18 06:59 06:59 06:59 Intake Total 1560 1320 1380 Output Total 350 450 Balance 1560 970 930 Result Diagrams: 09/30/18 18:31 09/27/18 04:58 EKG Reviewed by me: Yes (Tele: NSR, no acute events) Phys Exam - Physical Examination Constitutional: NAD HEENT: moist MMs Neck: supple Respiratory: no wheezing, no rales, no rhonchi, clear to auscultation bilateral Cardiovascular: RRR, no significant murmur, no rub Gastrointestinal: soft, non-tender, no distention, positive bowel sounds Musculoskeletal: no edema Dx/Plan (1) Left femoral vein DVT Code(s): I82.412 - ACUTE EMBOLISM AND THROMBOSIS OF LEFT FEMORAL VEIN Status: Acute (2) Thromboembolism involving left popliteal vein Code(s): I82.432 - ACUTE EMBOLISM AND THROMBOSIS OF LEFT POPLITEAL VEIN Status : Acute (3) History of lung cancer in adulthood Code(s): Z85.118 - PERSONAL HISTORY OF MALIGNANT NEOPLASM OF BRONCHUS AND LUNG Status: Chronic (4) History of tobacco abuse Code(s): Z87.891 - PERSONAL HISTORY OF NICOTINE DEPENDENCE Status: Acute - Plan Plan: 78-y.o. male former smoker from [place] with Stage IV lung cancer treated in [place] who presents with provoked left DVT 1. Provoked left femoral vein DVT, left popliteal vein thromboembolism - Increased Warfarin to 7.5 mg yesterday , Last INR 1.2, will recheck this AM and adjust as needed. - Continue Lovenox 1mg/kg q12h until warfarin becomes therapeutic. Normal Creatinine. - HASBLED = 1. Monitor for signs & symptoms of PE 2. Chest pain, r/o [place] - pain resolved - Troponin negative x3. EKG with left axis deviation and no ST/T wave changes. No previous EKG. - CXR: small opacity RUL. No cardiomegaly. 3. Tuberculosis contact - From [place] and has a cavitary lesion on CTA of chest, which could be his known malignancy or infectious. - Tuberculin PPD positive; however, patient has no symptoms/signs of TB. Acid fast sputum smear negative x3. Will d/c TB precautions and continue to follow Cx - Consulted pulmonology. Appreciate recs. Favors malignancy > infectious process in lung. 4. History of lung cancer - Recent chemo treatment in July 2018. - Dr. Serna of oncology consulted. Onc records from [place] obtained from family but need translation. Pt is unsuraned but wishes to follow up with Onc here in [facility] if possible. Discussed with Dr. Mims and family. Pt will need to obtain outside images and translation of past records. Will f/u with Onc as outpatient. 5. History of tobacco abuse - Smoking history of 60 years at 3-4 ppd. Patient quit October 2017. Diet: heart healthy VTE: Therapeutic Lovenox --> warfarin Code: Full Dispo: Pending therapeutic INR. Will f/u with Onc as outpatient.
[2018-10-01] MEDS ORDERED: Warfarin Sodium 5 MG TAB PO SCH (09:00)
[2018-10-01] MEDS: Enoxaparin Sodium 80 MG/0.8 ML SYRINGE SC SCH ×2 (09:02→20:13)
[2018-10-01 10:12] LABS: INR-International Normal Ratio 1.6; Prothrombin Time 19.4 SEC (12.0-14.7)
--- NOTE | 2018-10-01 12:03 | PRG ---
DATE OF SERVICE: 10/01/2018 Mr. Smith is sitting quietly in bed, in no distress. He and his family have requested an Oncology consult as an outpatient. They still have not made a decision regarding continuing his treatment here or in [place], although now they are leaning toward getting his treatment in [place]. In the event, his AFB stains have all been negative. Pulmonary seems to be this is part of his lung cancer. Clinically, he is improved, although we are still working on adjusting his pro-time and Coumadin. Job ID: [id number]
[2018-10-01] MEDS ORDERED: Warfarin Sodium 7.5 MG TAB PO SCH (17:00)
[2018-10-02 05:22] LABS: Hemoglobin 12.8 g/dL (14.0-18.0); Platelet Count 185 thou/uL (130-400)
--- NOTE | 2018-10-02 06:32 | PDOC.FM ---
- Subjective Subjective: Doing well this morning. No concerns or complaints, no acute events overnight. Pt is eager to go home once INR therapeutic. Family at bedside, discussed plan to obtain outside records from [place] and f/u with Onc as outpatient. No Cp, SOB , n/v/d/c, fever/chills. - Objective MAR Reviewed: Yes Vital Signs & Weight: Vital Signs (12 hours) Temp Pulse Resp BP BP Pulse Ox 10/02/18 03:17 98.6 F 82 18 102/66 96 10/01/18 23:42 98.3 F 73 17 98/63 93 L 10/01/18 21:00 98.2 F 75 16 125/70 96 10/01/18 20:00 96 Weight Admit Weight 71.123 kg Weight 67.676 kg I&O: 09/30/18 10/01/18 10/02/18 06:59 06:59 06:59 Intake Total 1320 1380 1120 Output Total 350 450 680 Balance 970 930 440 Result Diagrams: 10/02/18 04:33 09/27/18 04:58 Phys Exam - Physical Examination Constitutional: NAD HEENT: moist MMs Neck: supple Respiratory: no wheezing, no rales, no rhonchi, clear to auscultation bilateral Cardiovascular: RRR, no significant murmur, no rub Gastrointestinal: soft, non-tender, no distention, positive bowel sounds Musculoskeletal: no edema, pulses present Psychiatric: normal affect Dx/Plan (1) Left femoral vein DVT Code(s): I82.412 - ACUTE EMBOLISM AND THROMBOSIS OF LEFT FEMORAL VEIN Status: Acute (2) Thromboembolism involving left popliteal vein Code(s): I82.432 - ACUTE EMBOLISM AND THROMBOSIS OF LEFT POPLITEAL VEIN Status : Acute (3) History of lung cancer in adulthood Code(s): Z85.118 - PERSONAL HISTORY OF MALIGNANT NEOPLASM OF BRONCHUS AND LUNG Status: Chronic (4) History of tobacco abuse Code(s): Z87.891 - PERSONAL HISTORY OF NICOTINE DEPENDENCE Status: Acute - Plan Plan: 78-y.o. male former smoker from [place] with Stage IV lung cancer treated in [place] who presents with provoked left DVT 1. Provoked left femoral vein DVT, left popliteal vein thromboembolism - Warfarin to 7.5 mg daily, Last INR 1.6, INR pending this AM. - Continue Lovenox 1mg/kg q12h until warfarin becomes therapeutic. Normal Creatinine. - HASBLED = 1. Monitor for signs & symptoms of PE - Discussed with family need for PCP f/u. 2. Chest pain, r/o [place] - pain resolved. ACS enzyme r/o with no acute changes on EKG. No tele events. 3. Tuberculosis contact - From [place] and has a cavitary lesion on CTA of chest, which could be his known malignancy or infectious. - Tuberculin PPD positive; however, patient has no symptoms/signs of TB. Acid fast sputum smear negative x3. Will order quant gold prior to beginning any latent TB therapy. - Consulted pulmonology. Appreciate recs. Favors malignancy > infectious process in lung. 4. History of lung cancer - Recent chemo treatment in July 2018 in [place]. - Dr. Serna of oncology consulted. Onc records from [place] obtained from family but need translation. Pt is uninsured but wishes to follow up with Onc here in [facility] if possible. Discussed with Dr. Mims and family. Pt will need to obtain outside images and translation of past records. Will f/u with Onc as outpatient. 5. History of tobacco abuse - Smoking history of 60 years at 3-4 ppd. Patient quit October 2017. Diet: heart healthy VTE: Therapeutic Lovenox --> warfarin Code: Full Dispo: Pending therapeutic INR. Will f/u with Onc as outpatient and will need PCP f/u.
[2018-10-02] MEDS: Enoxaparin Sodium 80 MG/0.8 ML SYRINGE SC SCH (08:40)
[2018-10-02 09:26] LABS: Prothrombin Time 22.6 SEC (12.0-14.7)
[2018-10-02 11:28] VITALS: BP 106/69; TEMP 97.6
--- NOTE | 2018-10-02 12:09 | PRG ---
DATE OF SERVICE: 10/02/2018 Mr. Smith' pro-time is now therapeutic and he will be discharged to continue outpatient Coumadin. He will establish with a PCP year at [facility] and be seen for followup on Sunday to further adjust his Coumadin. Job ID: [id number]
--- NOTE | 2018-10-02 17:45 | DIS ---
DATE OF ADMISSION: 09/26/2018 DATE OF DISCHARGE: 10/02/2018 RESIDENT: Dr. Marcos Lindsay. ADMITTING ATTENDING: Dr. Chele iRojas. DISCHARGE ATTENDING: Dr. Chip Aleman. CONSULTS: 1. Oncology - Dr. Serna. 2. Pulmonology, Dr. Wynne. PROCEDURES: 1. Chest x-ray - no pleural effusion, right pulmonary infiltrates. 2. Left lower extremity venous duplex ultrasound - obstructing and nonobstructing extraluminal thrombus involving the superficial femoral vein, popliteal vein, profunda femoral vein. 3. Right lower extremity ultrasound with Doppler duplex - negative for deep vein thrombosis in the right lower extremity. 4. CTA of chest - no evidence of pulmonary thromboembolism. Right upper lobe cavitary mass could represent malignant versus infectious process. PRIMARY DIAGNOSES: 1. Provoked left femoral vein deep venous thrombosis and left popliteal vein thromboembolism. 2. Atypical chest pain. SECONDARY DIAGNOSES: 1. History of lung cancer treated in [place]. 2. History of tobacco abuse. 3. Tuberculosis contact. DISCHARGE MEDICATIONS: Warfarin 7.5 mg p.o. daily. DISCONTINUED MEDICATIONS: None. HISTORY OF PRESENT ILLNESS AND HOSPITAL COURSE: Mr. Smith is an 78-year-old Maltese-speaking gentleman from [place] with past medical history of lung cancer and extensive smoking history, who presented with left-sided chest pain. He stated the pain felt like pressure associated with shortness of breath, pain in his jaws bilaterally with associated nonproductive cough. He had no nausea, vomiting, diarrhea, fevers, chills, or diaphoresis. The pain was substernal without radiation, worse with exertion and fluctuated. The pain improved with rest. The patient has an extensive history of stage IV lung cancer, finished chemo in July 2018 in [place]. His next appointment with them is in October 22. The patient does endorse that 4 months ago he started having a tightness in his left leg without trauma and this was gradual in nature. The patient drives here from [place] to visit family, sitting in the car for over 12 hours at that time and is noted his left leg is more swollen than his right and denied any lower extremity pain. In the ED, his vitals were stable. EKG did not show any acute changes. Chest x -ray and venous Dopplers as per above demonstrated DVT without PE. His lactic acid was initially 2.7. He was given 2 L normal saline bolus and this improved. He was given an initial dose of Rocephin and azithromycin for possible pneumonia. However, upon both further investigation, it was determined that this was very unlikely infectious in nature and antibiotics were discontinued. He was started on heparin drip due to his findings of the superficial and deep venous thromboembolism. He was then admitted to the floor for further evaluation and management. The patient did well on the floor. His troponins were trended and negative, and he had no acute events on telemetry, and his chest pain resolved completely. A PPD was performed that was positive. Thus, the patient was placed on tuberculosis contacts due to his right cavitary lesion on CT. Pulmonology was consulted, appreciated recommendations. They state that this was likely due to his malignancy not tuberculosis. However, three sputum smears were performed that were all negative. After discussing with Pulmonology, it was decided that the patient could be taken off tuberculosis contacts and did not need any further treatment or evaluation. As far as treatment for his DVT, he was started on heparin, transitioned to Lovenox therapeutic. The patient is currently uninsured, thus the patient was transitioned to warfarin due to affordability. Initial INR was 1.0. This increased to 1.2, then 1.6 and finally on the day of discharge was 2.0. At that time, it was decided the patient could be discharged because his warfarin levels were therapeutic. The patient was given information on following up with the [facility]madin Clinic on SundayOctober 04 for an INR check and adjustment as needed as well as given information for [facility] to establish as primary care. The patient also has extensive history of stage IV lung cancer, completely treated in [place]. I discussed with the family his need for followup for his oncology care. Family voiced wishes to see an oncologist here in [facility], thus Dr. Serna was consulted. After discussing with Dr. Serna, he stated that no further workup will be pursued while inpatient, and the patient can follow up with an outpatient with him in clinic. Case management was discussed for any financial assistance, but due to the patient's immigration status, he is not eligible for assistance. Family was notified that they should obtain records from [place] as well as imaging and have them translated into Chinese if possible to assist with the oncologist followup here. The patient and family voiced understanding and said that they will contact the Cancer Center for potential outpatient followup. On the morning of discharge, the patient was doing well without any acute complaints. His INR was therapeutic at 2.0. He is given a prescription for warfarin 7.5 mg p.o. daily as well as information on bleeding risk and alarm symptoms that would warrant return to medical care. The patient was given information on PCP and communicated to followup. The patient and family voiced agreement and understanding of discharge plan, were eager to be discharged home. DISPOSITION: Stable. DISCHARGE INSTRUCTIONS: 1. Location: Home. 2. Diet: Heart healthy with consistent green leafy vegetables. 3. Activity: As tolerated. 4. Followup: The patient is to follow up with Coumadin clinic on this Sunday, October 04, as well as with primary care physician within 1 week. Job ID: [id number] TAMIR
[2018-10-02 20:07] LABS: QuantiFERON-TB Gold Plus POSITIVE (Negative)
== END 2018-10-02 13:35 | disposition home or self-care (01) | DRG 301 ==
LOC: ERS 13:00 → 2NO 17:57
PROVIDERS: ADMIT Family Medicine; ATTEND Family Medicine
DX: I82.432 Acute embolism and thrombosis of left popliteal vein (principal); I82.412 Acute embolism and thrombosis of left femoral vein; R07.89 Other chest pain; Z20.1 Contact with and (suspected) exposure to tuberculosis; Z87.891 Personal history of nicotine dependence; Z85.118 Personal history of other malignant neoplasm of bronchus and lung
CPT/HCPCS: 36415; 71045; 71275; 80053; 82550; 83605; 84145; 84484; 85014; 85018; 85025; 85049; 85610; 85730; 86480; 86580; 87040; 87116; 87206; 87389; 90471; 90670; 93005; 96365; 96367; G0009; J0456; J0696; J1644; J1650; Q9966

== ENCOUNTER 2018-10-17 15:01 | Outpatient (CLI) | payer MEDICAID, OTHER ==
--- NOTE | 2018-10-17 16:29 | CT ---
CT Chest W Con History: Left upper lobe cancer Comparison: CT angiogram chest September 26, 2018 Findings: The left upper lobe nodule with peripheral spiculation a subtle size increase there is regina cent atelectatic changes. Cavitation within the right upper lobe mass has decreased. Solid component is relatively similar. There is be treatment change and bronchiectasis in the right middle lobe. Right middle lobe periphera l opacity is unchanged. Small cavity into segment right upper lobe has increased in size without significant change in the so lid component. Nodule along the right minor fissure has increased in size measuring up to 1.3 cm, previously 5 mm. There is a cavity on the right minor fissure is new from the comparison examination. No pneumothorax. No significant effusion. There is a abnormal prevascular lymph node which has increa sed in size comparison examination abutting the left subclavian vein measuring up to 2.1 cm, previously 1 cm. Hypodensity is present hepatic segment 2, not well seen on the prior examination. Glands are unremarkable. No suspicious osteolytic or osteoblastic lesions. Impression: 1. Slight interval size increase of the spiculated left upper lobe mass. 2. The solid component of the cavitary lesion right upper lobe is unchanged although the cavitation h as decreased in size. 3. Size increased cavitations within the superior segment right lower lobe and right middle lobe may reflect treatment response. Treated septic emboli is felt somewhat less likely. 4. Size increase right middle lobe nodule along the minor fissure concerning for progressive metastat ic disease. 5. Abnormal enlarging prevascular lymph node with central necrosis likely metastatic in nature.
== END 2018-10-17 15:02 | disposition home or self-care (01) ==
LOC: BICCT 15:01
PROVIDERS: ATTEND Internal Medicine Hematology & Oncology
DX: R91.8 Other nonspecific abnormal finding of lung field (principal); C34.12 Malignant neoplasm of upper lobe, left bronchus or lung
CPT/HCPCS: 71260

== ENCOUNTER 2018-10-24 12:53 | Outpatient (CLI) | payer OTHER ==
--- NOTE | 2018-10-24 17:22 | PET ---
PET SCAN WITH CT ATTENUATION CORRECTION: HISTORY: Malignant bronchus of the upper lobe, left bronchus. COMPARISON: None. CORRELATION: Chest CT with contrast dated 10/17/18. CT angiogram of chest dated 09/26/18. TECHNIQUE: PET scanning with CT attenuation correction is performed from the base of the brain to the proximal t highs following the intravenous administration of 11.3 mCi F18-FDG. FINDINGS: HEAD/NECK: No abnormal FDG localization. CHEST: There is a hypermetabolic anterior left mediastinal/posterior medial periclavicular lymph node. Using the CT from attenuation correction, there is evidence of central necrosis. Maximum SUV is 30.5. Ther e is FDG avidity involving the spiculated mass in the left upper lobe with a maximum SUV of 13.6. The re is FDG avidity involving an irregular marginated mass in the posterior right upper lobe with a max imum SUV of 3.9. There are multiple hypermetabolic nodules in the middle lobe. Maximum SUV range is b etween 3.0 and 4.2. There is a cavitary lesion in the superior segment of the right lower lobe with a maximum SUV of 1.9. ABDOMEN/PELVIS: There appear to be hypermetabolic left periaortic lymph nodes with a maximum SUV of 2.5, which is at the upper limits of normal. Despite upper normal maximum SUV, the lymph node does appear to be enlarg ed. This lymph node measures 1.3 x 1.6 cm. There is increased FDG avidity involving the inferior right aspect of the prostate gland with a maxim um SUV Of 12.1. OSSEOUS: No abnormal FDG activity. IMPRESSION: 1. Necrotic lymph node in the anterior left mediastinum/left periclavicular region. 2. Multiple lung parenchymal irregular marginated masses and nodules with FDG avidity. Findings are worrisome for multifocal neoplasm. 3. FDG avidity in the right aspect of the prostate gland, worrisome for prostate malignancy. Correla te with PSA values. 4. Enlarged left periaortic lymph node with FDG avidity that is at the upper limits of normal. POS: CJ
== END 2018-10-24 12:54 | disposition home or self-care (01) ==
LOC: PET 12:53
PROVIDERS: ATTEND Internal Medicine Hematology & Oncology
DX: C34.12 Malignant neoplasm of upper lobe, left bronchus or lung (principal); R91.8 Other nonspecific abnormal finding of lung field; R59.0 Localized enlarged lymph nodes
CPT/HCPCS: 78815; A9552

== ENCOUNTER 2018-12-14 12:49 | Observation (INO) | payer MEDICAID, SELFPAY ==
[2018-12-14 13:40] LABS: #Eosinphils 0.1 thou/uL (0.0-0.7); #Lymphocytes 0.9 thou/uL (1.20-3.40); #Monocytes 0.7 thou/uL (0.11-0.59); %Basophils 0.5 % (0.0-1.0); %Eosinophils 2.2 % (0.0-10.0); %Lymphocytes 12.8 % (21.0-51.0); %Neutrophils 74.5 % (42.0-75.0); Hemoglobin 14.3 g/dL (14.0-18.0); Mean Corpuscular HGB CONC 33.8 g/dL (32.0-36.0); Mean Corpuscular Hemoglobin 32.1 pg (27.0-31.0); Mean Corpuscular Volume 94.7 fL (78.0-98.0); Mean Platelet Volume 6.5 fL (7.4-10.4); Platelet Count 204 thou/uL (130-400); Red Blood Cell (RBC) Count 4.47 mill/uL (4.70-6.10); White Blood Cell (WBC) Count 6.8 thou/uL (4.8-10.8)
[2018-12-14 13:48] LABS: INR-International Normal Ratio 1.9; PTT 35.3 SEC (22.9-36.1); Prothrombin Time 21.8 SEC (12.0-14.7)
[2018-12-14 14:03] LABS: ALT (SGPT) 22 U/L (8-55); AST (SGOT) 27 U/L (5-34); Albumin 3.3 g/dL (3.4-4.8); Alkaline Phosphatase 123 U/L (40-110); Anion Gap 14 mmol/L (10-20); BUN (Urea Nitrogen) 11 mg/dL (8.4-25.7); Bilirubin, Total 0.5 mg/dL (0.2-1.2); Calc. Creatinine Clearance 0 mL/min (70-130); Calcium 8.9 mg/dL (7.8-10.44); Carbon Dioxide 23 mmol/L (23-31); Chloride 98 mmol/L (98-107); Estimated GFR-MDRD 67; Globulin 3.2 g/dL (2.4-3.5); Glucose 340 mg/dL (83-110); Lipase 27 U/L (8-78); Potassium 3.6 mmol/L (3.5-5.1); Protein, Total 6.5 g/dL (5.8-8.1); Sodium 131 mmol/L (136-145)
--- NOTE | 2018-12-14 15:22 | CT ---
CT PULMONARY ANGIOGRAM WITH IV CONTRAST AND 3D POST PROCESSING: HISTORY: Chest pain. Lung cancer. FINDINGS: There is good contrast opacification of the pulmonary arterial vasculature without filling defects to suggest pulmonary embolism. There are vascular calcifications without aneurysm of the thoracic aorta . No pleural or pericardial effusions are seen. Lymphadenopathy in the left upper superior mediastinum has increased, measuring 4 cm on the current e xam compared to 2.6 cm on the PET CT of 10/24/2018. The left upper lobe lung mass has also increased in size, measuring 3.5 cm. The mass in the right posterior upper lobe is stable in size. IMPRESSION: 1. No CT evidence of pulmonary embolism. 2. Interval worsening of metastatic disease since 10/24/2018. POS: STEFF
--- NOTE | 2018-12-14 15:28 | RAD ---
PORTABLE CHEST ONE VIEW: 12/14/2018 1:59 p.m. HISTORY: Chest pain. COMPARISON: 09/26/2018 FINDINGS: The heart size is normal. The aorta is tortuous. The lungs are well expanded with patchy opacities, w hich are described on the CT pulmonary angiogram from the same date. No pneumothoraces or pleural eff usions are seen. POS: [facility]
--- NOTE | 2018-12-14 16:27 | PDOC.FPRHP ---
- History of Present Illness Chief Complaint: sharp chest pain History of Present Illness: This 78-yo male w/ known lung cancer and TB actively being treated is here for chest pain, sharp and crushing in nature, which radiates to back and left shoulder. Starts on left side where his oldest lung cancer lesion is. Pain was severe in nature, Tylenol and advil did not help. No worsening on exertion or anything that worsened the pain. Pain resolved on its own. Over the past few weeks, pt has had sharp chest pain similar to this, but this is the worst its been. Associated w/ sweating. Denies nausea, vomiting. Not associated w/ eating. Comes on randomly. Currently pt is asymptomatic. ED Course: Worked up for chest pain and possible PE. No meds or fluids given. - Allergies/Adverse Reactions Allergies Allergy/AdvReac Type Severity Reaction Status Date / Time No Known Allergies Allergy Verified 12/14/18 20:04 - Home Medications Medication Instructions Recorded Confirmed Type Warfarin Sodium [Coumadin] 7.5 mg PO 1700 #30 tab 10/02/18 Rx - History PMHx: - Lung cancer, bilaterally - TB - DVT of lower extremity, provoked PSHx: denies FHx: non-contributory Social: - 60 year smoking history of up to 4 ppd. - Denies smoking, other drugs. - Lives [employer] in [place] - Review of Systems General: reports: weight/appetite/sleep changes, fatigue. denies: fever/chills Eyes: denies: vision changes ENT: denies: rhinorrhea Respiratory: reports: shortness of breath. denies: cough Cardiovascular: reports: chest pain (see HPI). denies: palpitation, edema Gastrointestinal: denies: nausea, vomiting Genitourinary: denies: dysuria Skin: denies: rashes Musculoskeletal: reports: pain. denies: swelling, arthritis/arthralgias Neurological: denies: seizure, weakness Psychological: denies: anxiety, depression - Vital signs BP: 126/84 HR: 83 RR: 25 Pox: 96% on RA - Physical Exam Constitutional: NAD, awake, alert and oriented, well developed HEENT: normocephalic and atraumatic, no scleral icterus, grossly normal vision Neck: trachea midline Heart: RRR, normal S1/S2, no murmurs/rubs/gallops, no edema -Lungs: mild wheezing in upper lobes b/l, otherwise clear, no rales, rhonchi Abdomen: soft, non-tender, bowel sounds present, no masses/distention Musculoskeletal: normal structure, normal tone Skin: no rash/lesions, good turgor, no jaundice Heme/Lymphatic: no unusual bruising or bleeding, no purpura Psychiatric: normal mood and affect, intact recent and remote memory FMR H&P: Results - Labs Result Diagrams: 12/14/18 13:27 12/14/18 13:27 Lab results: WBC 6.8 thou/uL (4.8-10.8) 12/14/18 13:27 Hgb 14.3 g/dL (14.0-18.0) 12/14/18 13:27 Hct 42.3 % (42.0-52.0) 12/14/18 13:27 MCV 94.7 fL (78.0-98.0) 12/14/18 13:27 Plt Count 204 thou/uL (130-400) 12/14/18 13:27 Neutrophils % 74.5 % (42.0-75.0) 12/14/18 13:27 Sodium 131 mmol/L (136-145) L 12/14/18 13:27 Potassium 3.6 mmol/L (3.5-5.1) 12/14/18 13:27 Chloride 98 mmol/L (98-107) 12/14/18 13:27 Carbon Dioxide 23 mmol/L (23-31) 12/14/18 13:27 BUN 11 mg/dL (8.4-25.7) 12/14/18 13:27 Creatinine 1.06 mg/dL (0.7-1.3) 12/14/18 13:27 Glucose 340 mg/dL (83-110) H 12/14/18 13:27 Calcium 8.9 mg/dL (7.8-10.44) 12/14/18 13:27 Total Bilirubin 0.5 mg/dL (0.2-1.2) 12/14/18 13:27 AST 27 U/L (5-34) 12/14/18 13:27 ALT 22 U/L (8-55) 12/14/18 13:27 Alkaline Phosphatase 123 U/L (40-110) H 12/14/18 13:27 Serum Total Protein 6.5 g/dL (5.8-8.1) 12/14/18 13:27 Albumin 3.3 g/dL (3.4-4.8) L 12/14/18 13:27 Lipase 27 U/L (8-78) 12/14/18 13:27 - EKG Interpretation EKG: NSR, R axis dev, pulm disease pattern, RVH, QTc 480 - Radiology Interpretation Chest x-ray Status: image reviewed by me, report reviewed by me Additional comment: patchy opacities, no pleural effusions or pneumothorax CT scan - chest Status: report reviewed by me Additional comment: No PE. Worsening metastatic disease compared to prior study. FMR H&P: A/P - Problem List (1) Active tuberculosis Current Visit: Yes Status: Acute Code(s): A15.9 - RESPIRATORY TUBERCULOSIS UNSPECIFIED (2) Chest pain, rule out acute myocardial infarction Current Visit: No Status: Acute Code(s): R07.9 - CHEST PAIN, UNSPECIFIED (3) Left femoral vein DVT Current Visit: No Status: Chronic Code(s): I82.412 - ACUTE EMBOLISM AND THROMBOSIS OF LEFT FEMORAL VEIN (4) History of lung cancer in adulthood Current Visit: No Status: Chronic Code(s): Z85.118 - PERSONAL HISTORY OF MALIGNANT NEOPLASM OF BRONCHUS AND LUNG - Plan 78 yo M admitted for: Atypical chest pain Rule out ACS - Pt's chest pain atypical in nature, did not require nitro to resolve pain, resolved spontaneously - CTA negative for PE - EKG with no acute change, prolonged QTc at 480, but no ST depressions or elevations - Initial trop 0.024, will trend - HEART score 4 - Nitro prn for pain - May have regular diet - Will risk stratify pt w/ FLP in AM, Hgb A1C. Unknown if diabetic, bG 300. Metastatic lung cancer - prognosis is poor. - Consulted palliative care for goals of care and pain management - Tylenol and Hydrocodone for pain. Avoid NSAIDs. Avoid giving >4 g tylenol per day with the two pain medications. Active TB - on previous admissions, had 3 of 3 cultures grow mycobacterium - Is currently on 5 medication TB regimen - Will prescribe while pt is here - Airborne isolation precautions, negative pressure room Hx of L lower extremity DVT - patient on warfarin 7.5 mg daily - subtherapeutic INR at 1.9 - continue warfarin. Pt does not want surgery/cath, however does want to remain full code - INR in AM - Needs education on warfarin specific diet and what foods to avoid. CODE: FULL VTE PPx: already on warfarin GI PPx: none Diet: Carb consistent, low vitamin K (warfarin) Fluids: none Disposition/LOS: Admit to telemetry, observation. FMR H&P: Upper Level - Plan Date/Time: 12/14/18 162 PCP: YOSEPH HPI: This is an 78 gentleman with known stage IV lung cancer who comes in for ACS r/ o. He was resting at home today when he had sudden onset sharp chest pain radiating to his shoulder. Nothing made it better or worse. Lasted about 1.5 hours then resolved spontaneously. He is being treated for TB by the health department, community health workers have been taking medications to his house for 2-3 weeks now. Denies cough, fevers, chills, sweats, or weight loss. PHYSICAL EXAMINATION: General: NAD, alert and oriented x3 HEENT: PERRLA, EOMI, normal sclera, oropharynx without erythema or exudate Neck: Supple. Full ROM. Heart/Cardiovascular System: RRR, Cap refill < 3 seconds, no rub, no murmur Lungs/Respiratory System: clear to auscultation bilaterally. No increased work of breathing. Room air. Abdomen/Gastro-Intestinal System: no abdominal tenderness, normal bowel sounds, no masses, no organomegaly Extremities: Warm extremities. No cyanosis or edema. Neuro: No gross deficits appreciated. CN 2-12 grossly intact Psychiatry: Awake, Alert and cooperative with exam Skin: No lesions, rashes, or ulcers Musculoskeletal: Full ROM A/P: # CP r/o, suspect pain is related to cancer - trop neg x2, no ST changes on EKG - patient not interested in surgical options - does still want to be full code # TB - cont home regimen - isolation # Stage IV lung cancer - worsening metastasis noted on CTA - no PE - hx of DVT will check Doppler - on warfarin, hx of irratic INR, will trend - discussed goals of care with family, patient still wants to be full code for now but would like to meet with palliative care team and learn more about hospice Addendum - Attending - Attending Attestation Date/Time: 12/14/182019 I personally evaluated the patient and discussed the management with Dr. Marks I agree with the History, Examination, Assessment and Plan documented above with any addition or exceptions noted below - 78 yo male with h/o metastatic lung cancer, DVT on warfarin, and active TB undergoing treatment presented c/o sharp left sided chest pain radiating to back with associated diaphoresis. Denies any SOB, N/V. PMH/PSH/Meds/All reviewed and agree with resdient's documentation. Afebrile VSS. Exam repeated by me and agree with resident's findings. Labs: trop I (-) x 2; Yzsy=897, TSH= 3.1639 A/P: 1) Chest pain- monitor serial cardiac enzymes. Hold ASA due to patient being on warfarin. 2) DVT- continue warfarin; monitor INR. 3) TB- continue current meds; continue isolation precautions. 4) Lung cancer- palliative consult in AM
[2018-12-14] MEDS ORDERED: Acetaminophen 325 MG TAB PO PRN (16:47)
[2018-12-14] MEDS ORDERED: Nitroglycerin 0.4 MG TAB (25 Tab Bottle) PO PRN (16:47)
[2018-12-14] MEDS ORDERED: Ondansetron PF 4 MG/2 ML Vial IVP PRN (16:47)
[2018-12-14] MEDS ORDERED: Ondansetron ODT 4 MG TAB PO PRN (16:47)
[2018-12-14] MEDS ORDERED: Acetaminophen 650 MG Suppository PR PRN (16:47)
[2018-12-14] MEDS ORDERED: Warfarin Sodium 7.5 MG TAB PO SCH (17:00)
[2018-12-14] MEDS ORDERED: HYDROcodone/Acetaminophen 5/325 mg Tablet PO PRN (17:06)
[2018-12-14 17:13] LABS: Magnesium 1.5 mg/dL (1.6-2.6)
[2018-12-14 17:18] LABS: Troponin I Less than 0.010 ng/mL (< 0.028)
[2018-12-14 17:19] LABS: Phosphorus 1.3 mg/dL (2.3-4.7)
[2018-12-14] MEDS ORDERED: Magnesium 2 GM/50 ML 2 GM in Premix Bag 1 BAG IVPB SCH (18:45)
[2018-12-14] MEDS: HYDROcodone/Acetaminophen 5/325 mg Tablet PO PRN (21:10)
[2018-12-15] MEDS: HYDROcodone/Acetaminophen 5/325 mg Tablet PO PRN (04:09)
[2018-12-15 05:52] LABS: #Eosinphils 0.2 thou/uL (0.0-0.7); #Lymphocytes 0.9 thou/uL (1.20-3.40); #Monocytes 0.6 thou/uL (0.11-0.59); #Neutrophils 4.6 thou/uL (1.40-6.50); %Basophils 0.3 % (0.0-1.0); %Eosinophils 3.1 % (0.0-10.0); %Lymphocytes 14.8 % (21.0-51.0); %Monocytes 9.3 % (0.0-10.0); %Neutrophils 72.5 % (42.0-75.0); Hemoglobin 14.2 g/dL (14.0-18.0); Mean Corpuscular HGB CONC 34.4 g/dL (32.0-36.0); Mean Corpuscular Hemoglobin 33.2 pg (27.0-31.0); Mean Corpuscular Volume 96.6 fL (78.0-98.0); Mean Platelet Volume 6.4 fL (7.4-10.4); Platelet Count 204 thou/uL (130-400); RBC Distribution Width 12.9 % (11.5-14.5); Red Blood Cell (RBC) Count 4.26 mill/uL (4.70-6.10); White Blood Cell (WBC) Count 6.3 thou/uL (4.8-10.8)
--- NOTE | 2018-12-15 05:54 | PDOC.FM ---
- Subjective Subjective: Patient reports pinching pain throughout his chest wall that radiates to his shoulder, though it is much better than yesterday. He reports that this is a chronic problem, and it is much better today than yesterday. Denies squeezing or crushing cp. Denies sob. - Objective Vital Signs & Weight: Vital Signs (12 hours) Temp Pulse Resp BP Pulse Ox 12/15/18 03:41 98.2 F 86 16 125/74 96 12/15/18 00:21 98.1 F 97 16 112/71 98 12/14/18 20:55 76 134/73 12/14/18 19:40 97.1 F L 86 18 131/85 99 Weight Weight 141.8 g Result Diagrams: 12/15/18 05:42 12/15/18 05:42 Phys Exam - Physical Examination Constitutional: NAD HEENT: moist MMs, sclera anicteric Neck: supple, full ROM Respiratory: no wheezing, clear to auscultation bilateral Cardiovascular: RRR, no significant murmur Gastrointestinal: soft, non-tender Musculoskeletal: no edema, pulses present Neurological: non-focal, moves all 4 limbs Lymphatic: no nodes Psychiatric: normal affect, A&O x 3 Skin: no rash, normal turgor Dx/Plan (1) Active tuberculosis Code(s): A15.9 - RESPIRATORY TUBERCULOSIS UNSPECIFIED Status: Acute (2) Chest pain, rule out acute myocardial infarction Code(s): R07.9 - CHEST PAIN, UNSPECIFIED Status: Acute (3) History of tobacco abuse Code(s): Z87.891 - PERSONAL HISTORY OF NICOTINE DEPENDENCE Status: Acute (4) History of lung cancer in adulthood Code(s): Z85.118 - PERSONAL HISTORY OF MALIGNANT NEOPLASM OF BRONCHUS AND LUNG Status: Chronic - Plan Plan: 78M with PMHx of metastatic lung cancer and TB admitted for: #Atypical chest pain, Rule out ACS - Pt's chest pain atypical in nature, did not require nitro to resolve pain, resolved spontaneously upon presentation - reports that he is feeling some pinching pain along his chest wall today, but this is chronic in nature - Less likely cardiac in nature at this time, more likely related to his lung cancer - CTA negative for PE - EKG with no acute change, prolonged QTc at 480, but no ST depressions or elevations - Trop 0.026>0.01>0.02 - HEART score 4 - Nitro prn for pain - HH diet - A1C 7.0, no previous diagnosis of diabetes - total chol 119, LDL 61, HDL 42 #Metastatic lung cancer - prognosis is poor. - Palliative care consulted - Tylenol and Hydrocodone for pain. Avoid NSAIDs. Avoid giving >4 g tylenol per day between the two pain medications. #Active TB - on previous admissions, had 3 of 3 cultures grow mycobacterium - Is currently on 5 medication TB regimen:vit b6, rifampin, pyrazinamide, ethambutol, isoniazid - Will prescribe while pt is here - Airborne isolation precautions, negative pressure room #Hx of L lower extremity DVT - patient on warfarin 7.5 mg daily - subtherapeutic INR at 1.9> 1.8 - continue warfarin - venous doppler today - Needs education on warfarin specific diet and what foods to avoid. #New Onset DM2 -A1C 7.0 -Patient will f/u outpatient CODE: FULL VTE PPx: warfarin GI PPx: none Diet: Carb consistent, low vitamin K (warfarin) Fluids: none Disposition/LOS: Admit to telemetry, observation. Addendum - Attending - Attending Attestation Date/Time: 12/15/18 [id number] I personally evaluated the patient and discussed the management with Dr. Eli I agree with the History, Examination, Assessment and Plan documented above with any addition or exceptions noted below - A/P: 1) Chest pain- enzymes negative. Patient declines further workup. D/c home today. 2) TB- continue home meds 3) Metastatic lung cancer- stable.
[2018-12-15 05:55] LABS: INR-International Normal Ratio 1.8; Prothrombin Time 20.6 SEC (12.0-14.7)
[2018-12-15 06:12] LABS: Anion Gap 12 mmol/L (10-20); BUN (Urea Nitrogen) 10 mg/dL (8.4-25.7); Calc. Creatinine Clearance 0 mL/min (70-130); Calcium 8.8 mg/dL (7.8-10.44); Carbon Dioxide 24 mmol/L (23-31); Cardiac Risk 2.8 (Less than 4.5); Chloride 103 mmol/L (98-107); Cholesterol 119 mg/dl (< 200 Desired); Estimated GFR-MDRD Greater than 90; Glucose 149 mg/dL (83-110); HDL Cholesterol 42 mg/dL (>60 Neg Risk); LDL Cholesterol, Calculated 61 mg/dL; Potassium 3.5 mmol/L (3.5-5.1); Sodium 135 mmol/L (136-145); Triglycerides 80 mg/dL (Less than 150)
[2018-12-15 07:14] LABS: Magnesium 1.7 mg/dL (1.6-2.6)
[2018-12-15] MEDS ORDERED: PHOS-NAK 1 PKT PACK PO SCH (07:30)
[2018-12-15] MEDS ORDERED: Rifampin 300 MG CAP PO SCH (09:00)
[2018-12-15] MEDS ORDERED: pyridOXINE 50 MG (B6) TAB PO SCH (09:00)
[2018-12-15] MEDS ORDERED: Ethambutol HCl 400 MG TAB PO SCH (09:00)
[2018-12-15] MEDS ORDERED: Pyrazinamide 500 MG TAB PO SCH (09:00)
[2018-12-15] MEDS ORDERED: Isoniazid 100 MG TAB PO SCH (09:00)
--- NOTE | 2018-12-15 10:19 | ULT ---
Venous duplex sonogram bilateral lower extremity HISTORY: Bilateral leg pain and edema. FINDINGS: There are internal echoes and incomplete compressibility involving the left common femoral vein and greater saphenous junction, extending into the femoral vein and popliteal vein. Posterior tibial vein is without thrombus. Good color and spectral Doppler flow are still seen. On the right, there is good color and spectral Doppler flow with no internal echoes and good compress ibility involving the common femoral vein and greater saphenous junction, the femoral, deep femoral, popliteal, and posterior tibial veins. IMPRESSION: Extensive nonocclusive DVT throughout the left lower extremity. Findings were relayed to the patient's nurse by the sonographic technologist at the time of the exam.
[2018-12-15 12:10] VITALS: BP 112/68; TEMP 98.1
--- NOTE | 2018-12-15 21:03 | DIS ---
DATE OF ADMISSION: 12/14/2018 DATE OF DISCHARGE: 12/15/2018 ADMITTING RESIDENT: Lorri Marks MD ADMITTING ATTENDING: Ashley Donald MD DISCHARGE RESIDENT: Elina Eli MD DISCHARGE ATTENDING: Ashely Donald MD CONSULTATIONS: Palliative Care, Hospice Agency, Case Management. PROCEDURES: None. IMAGIN. CTA: No CT evidence of PE, interval worsening of metastatic disease since 10/24/2018. 2. Chest x-ray: Normal heart size. Torturous aorta. Lungs are well expanded with patchy opacities. No pneumothoraces or pleural effusions. 3. Venogram: Extensive nonocclusive DVT throughout the left lower extremity. PRIMARY DIAGNOSES: Atypical chest pain, new onset diabetes type 2. SECONDARY DIAGNOSES: Metastatic lung cancer, active tuberculosis, history of left lower extremity deep venous thrombosis. DISCHARGE MEDICATIONS: 1. Ethambutol 400 mg p.o. daily. 2. Hydrocodone one tab 5/325 p.o. q.6 hours p.r.n. x20 tabs. 3. Ibuprofen 400 mg p.o. q.6 hours p.r.n. 4. Isoniazid 300 mg p.o. daily. 5. Pyrazinamide 500 mg p.o. daily. 6. Rifampin 300 mg p.o. daily. 7. Warfarin 7.5 mg p.o. q. Sunday, Sunday, Sunday, Sunday, Sunday; 8. Warfarin 10 mg (2 x 5mg tablets) p.o. q. Sunday and . 9. Pyridoxine 50 mg daily. DISCONTINUED MEDICATIONS: 1. Zofran. 2. Tylenol. 3. Nitroglycerin. HISTORY OF PRESENT ILLNESS AND HOSPITAL COURSE: The patient is an 78-year-old male with known metastatic lung cancer and TB, being treated currently, presented with chest pain that radiated to the back and left shoulder. The patient's pain did not worsen on exertion, has been ongoing for the last several weeks, worsened before presentation. The pain was relieved on its own. At one point, he had some chest pain during the hospitalization, which was not relieved by nitroglycerin, but was relieved by [place]. It is felt that his chest pain is chest wall pain from his metastatic lung cancer, not cardiac in nature. The patient was clear on admission that he would not want to have a cardiac cath if it recommended. There was discussion about the possibility of hospice with the patient, and the daughter stated that she wanted to discuss it with her sister and the family before they decide. It was recommended to continue the discussion of possible hospice with his PCP in outpatient followup. Throughout the hospitalization, the patient remained in a negative pressure room and continued to receive his home TB medications. The patient's INR was found to be 1.9 on admission and 1.8 the following day. The patient reportedly takes 7.5 mg Coumadin each day, the dose of which was increased to 10 mg Sunday and , with 7.5 mg continued Sunday, Sunday, Sunday, Sunday, and Sunday. A lab order was placed in the clinic and directions were given to the patient to get labs done this Sunday, 12/20, to check his PT/INR. The patient was also diagnosed with diabetes on this admission with an A1c of 7.0. The patient was provided with some diabetes education and it was recommended that he try to make changes in his diet and exercise routine before medications are started, and to follow up with his PCP. The patient was discharged in stable condition without chest pain. He was agreeable with the current plan of care, with instructions given for his new Coumadin regimen as well as to get his labs this Sunday, 12/20, and follow up with his PCP. DISPOSITION: Guarded. DISCHARGE INSTRUCTIONS: 1. Location: Home. 2. Diet: Heart healthy, carb conscious. 3. Activity: As tolerated. 4. Followup: Follow up for lab draw on 12/20 at [facility], and with PCP, Dr. Marcos Lindsay, within 2 weeks. Job ID: [id number] [facility]
== END 2018-12-15 13:35 | disposition home or self-care (01) ==
LOC: ERS 12:49 → 2SW 16:34
PROVIDERS: ADMIT Family Medicine; ATTEND Family Medicine
DX: R07.89 Other chest pain (principal); A15.9 Respiratory tuberculosis unspecified; C34.91 Malignant neoplasm of unspecified part of right bronchus or lung; C34.92 Malignant neoplasm of unspecified part of left bronchus or lung; E11.9 Type 2 diabetes mellitus without complications; I82.412 Acute embolism and thrombosis of left femoral vein; Z79.01 Long term (current) use of anticoagulants; Z87.891 Personal history of nicotine dependence
CPT/HCPCS: 36415; 36416; 71045; 71275; 80048; 80053; 80061; 83036; 83690; 83735; 84100; 84443; 84484; 85025; 85610; 85730; 93970; 94760; G0378; J3475

== ENCOUNTER 2019-02-11 07:50 | Emergency (ER) | payer SELFPAY ==
[2019-02-11 08:44] LABS: #Eosinphils 0.1 thou/uL (0.0-0.7); #Lymphocytes 1.2 thou/uL (1.20-3.40); #Monocytes 0.6 thou/uL (0.11-0.59); #Neutrophils 9.5 thou/uL (1.40-6.50); %Basophils 0.3 % (0.0-1.0); %Eosinophils 1.1 % (0.0-10.0); %Lymphocytes 10.8 % (21.0-51.0); %Monocytes 5.6 % (0.0-10.0); %Neutrophils 82.3 % (42.0-75.0); Hemoglobin 14.7 g/dL (14.0-18.0); Mean Corpuscular HGB CONC 33.6 g/dL (32.0-36.0); Mean Corpuscular Hemoglobin 32.6 pg (27.0-31.0); Mean Platelet Volume 6.5 fL (7.4-10.4); Platelet Count 289 thou/uL (130-400); RBC Distribution Width 12.4 % (11.5-14.5); Red Blood Cell (RBC) Count 4.52 mill/uL (4.70-6.10); White Blood Cell (WBC) Count 11.5 thou/uL (4.8-10.8)
[2019-02-11 08:47] LABS: PTT 71.8 SEC (22.9-36.1); Prothrombin Time 64.7 SEC (12.0-14.7)
[2019-02-11 08:49] LABS: INR-International Normal Ratio 7.8
[2019-02-11 08:55] LABS: ALT (SGPT) 10 U/L (8-55); AST (SGOT) 12 U/L (5-34); Albumin 3.4 g/dL (3.4-4.8); Alkaline Phosphatase 114 U/L (40-110); Anion Gap 13 mmol/L (10-20); BUN (Urea Nitrogen) 8 mg/dL (8.4-25.7); Bilirubin, Total 0.7 mg/dL (0.2-1.2); CK (CPK) 21 U/L (30-200); Calc. Creatinine Clearance 0 mL/min (70-130); Calcium 9.6 mg/dL (7.8-10.44); Carbon Dioxide 29 mmol/L (23-31); Chloride 97 mmol/L (98-107); Estimated GFR-MDRD Greater than 90; Globulin 3.5 g/dL (2.4-3.5); Glucose 250 mg/dL (83-110); Potassium 3.9 mmol/L (3.5-5.1); Protein, Total 6.9 g/dL (5.8-8.1); Sodium 135 mmol/L (136-145)
--- NOTE | 2019-02-11 10:04 | RAD ---
RADIOGRAPH CHEST 1 VIEW: Date: 02/11/19 Time: 0920 HOURS HISTORY: 78-year-old male with left-sided chest pain. COMPARISON: 12/14/18. FINDINGS: There is a new finding of a very elevated left hemidiaphragm. Left upper paramediastinal opacity appe ars more prominent than on the prior study, corresponding to the tumor demonstrated on the CT pulmona ry angiogram of 12/14/18. The adjacent mild infiltrate-like density in the medial aspect of the left upper lobe, remains. The two faint nodular densities in the right lung are difficult to appreciate on the current study. No pulmonary edema or cardiomegaly. No pneumothorax. IMPRESSION: 1. Left upper paramediastinal neoplastic tumor. 2. New finding of very elevated left hemidiaphragm is evidence for left phrenic nerve palsy. JN [] POS: [facility]
[2019-02-11] MEDS ORDERED: Iopamidol-370 76% 500 ML 1 ML ONE (10:55)
--- NOTE | 2019-02-11 13:08 | CT ---
CT PULMONARY ANGIOGRAM WITH IV CONTRAST AND 3D MIP RECONSTRUCTIONS: 02/11/2019 PROVIDED CLINICAL HISTORY: Chest pain. COMPARISON: 12/14/2018 10/17/2018 FINDINGS: There is no evidence for central or segmental pulmonary embolus. There is insufficient opacification of the systemic arterial system for comment regarding dissection. Vascular calcification including co ronary calcium is demonstrated. Interval enlargement of posterior segment left upper lobe mass, now measuring about 4.6 cm in greates t transverse dimension (as compared to about 3.5 cm on the prior. Interval enlargement of left superior mediastinal mass, now measuring about 5.5 cm in greatest transv erse dimension as compared to about 4 cm on the prior. This surrounds completely the left common randh[place] tid artery throughout its thoracic inlet course and superior mediastinal course, as well as the simil ar portions of the left subclavian artery. Air density within the lateral margin of this mass is of u ncertain etiology and may reflect superimposed infection. Similar size of right lower lobe pulmonary nodule. The visualized portions of the upper abdomen demonstrate no significant abnormality. The osseous structures demonstrate no concerning lytic or blastic lesions. IMPRESSION: 1. No evidence for central or segmental pulmonary embolus. 2. Interval enlargement of left upper lobe mass. 3. Interval enlargement of left superior mediastinal mass with encasement of portions of left common carotid and left subclavian arteries. Gas density within a portion of this mass could reflect a super imposed infectious process or changes related to necrosis. POS: OFF
--- NOTE | 2019-02-11 13:16 | CT ---
CT BRAIN WITH AND WITHOUT CONTRAST: 02/11/2019 12:23 p.m. HISTORY: An 78-year-old male with metastatic lung cancer presents with diaphoresis. TECHNIQUE: Precontrast scan of brain IV injection iodinated contrast media: Isovue-370 100 mL. Postcontrast scan of brain FINDINGS: There is no midline shift or any other mass effect. There is no evidence of acute intracranial hemor rhage, large cortical infarct, obstructive hydrocephalus, or extraaxial fluid collection. There is n o abnormal intraaxial enhancement or mass. The calvarium is intact. There is diffuse age-appropriate brain parenchymal volume loss. Broadly abutting the left side of the interhemispheric falx, there is an approximately 1.4 x 0.7 cm moderately high density mass which enhances. It does not cause vasogen ic edema in the adjacent brain parenchyma. IMPRESSION: 1. No acute intracranial findings. 2. Small left parafalcine, supratentorial, extraaxial neoplasm: Evidence for meningioma (statisticall y, this is more likely to represent a meningioma than a solitary extraaxial metastasis). jnr POS: [facility]
== END 2019-02-11 15:30 | disposition home or self-care (01) ==
LOC: ERS 07:50
DX: C34.12 Malignant neoplasm of upper lobe, left bronchus or lung (principal); Z79.01 Long term (current) use of anticoagulants; Z79.899 Other long term (current) drug therapy
CPT/HCPCS: 36415; 70470; 71045; 71275; 80053; 82550; 83605; 84484; 85025; 85379; 85610; 85730; 93005; 94760; Q9967